=== PATIENT | female | born 1990 | race Caucasian/White ===

== ENCOUNTER 2023-12-02 06:14 | Emergency (ER) | payer MEDICAID ==
[~2023-12-02] VITALS: Ht 152.4 cm; Wt 100.0 kg
[2023-12-02] MEDS: ONDANSETRON ODT 4 MG TAB PO ONE (08:05)
[2023-12-02] MEDS: IBUPROFEN 600 MG TAB PO ONE (08:05)
[2023-12-02 08:39] VITALS: BP 129/61; PULSE 76; RESP 20; TEMP 98.5; O2SAT 96
[2023-12-02 08:49] LABS: COVID19 ANTIGEN SOFIA FIA POSITIVE (NEGATIVE); Rapid Influenza A Negative (Negative); Rapid Influenza B Negative (Negative)
[2023-12-02] MEDS ORDERED: ALBUAER3 IN (09:08)
[2023-12-02] MEDS ORDERED: ZOFR4T PO (09:08)
[2023-12-02] MEDS ORDERED: DEXT60TA4 PO (09:08)
== END 2023-12-02 09:22 | disposition home or self-care (01) ==
LOC: ER 06:14
DX: U07.1 COVID-19 (principal); Z88.2 Allergy status to sulfonamides; Z90.89 Acquired absence of other organs
CPT/HCPCS: 36415; 71046; 87426; 87804; 99284; Q0162